=== PATIENT | male | born 1995 | race African-American/Black ===

== ENCOUNTER 2022-04-10 06:21 | Emergency (ER) | payer SELFPAY ==
[~2022-04-10] VITALS: Ht 180.3 cm; Wt 88.0 kg
[2022-04-10] MEDS ORDERED: IBUPROFEN 400MG TABLET PO ONE (08:30)
[2022-04-10] MEDS ORDERED: ACETAMINOPHEN 325MG TABLET PO SCH (09:00)
[2022-04-10] MEDS ORDERED: IBUP-2028 MT (09:57)
[2022-04-10 11:14] VITALS: BP 126/54
== END 2022-04-10 11:15 | disposition home or self-care (01) ==
LOC: ER 06:21
DX: M25.572 Pain in left ankle and joints of left foot (principal)
CPT/HCPCS: 73610; 73630; 99284; Z7610